=== PATIENT | female | born 1990 | race Caucasian/White ===

== ENCOUNTER 2021-07-27 15:55 | Outpatient (RCR) | payer OTHER, SELFPAY ==
[2021-07-27 17:33] LABS: Hematocrit 34.4 % (37.0-47.0); Hemoglobin 11.6 g/dL (12.0-15.0)
[2021-07-27 17:42] LABS: Glucose 1 Hour PP 50gm Dose 167 mg/dL
[2021-07-27 18:22] LABS: HIV 1/2 Ab P24 Ag Result Negative (Negative)
[2021-07-27 22:03] LABS: Rubella IgG Antibody 36.1 IU/ML
[2021-07-28] MEDS: RHO(D) IMMUNE GLOBULIN 300 MCG/2 ML SYRINGE IM (21:41)
== END 2021-10-25 23:59 | disposition home or self-care (01) ==
LOC: ANHLAB 15:55
PROVIDERS: Visit Provider Obstetrics & Gynecology
DX: Z29.13 Encounter for prophylactic Rho(D) immune globulin (principal); Z11.4 Encounter for screening for human immunodeficiency virus [HIV]; O36.0190 Maternal care for anti-D [Rh] antibodies, unspecified trimester, not applicable or unspecified; Z3A.00 Weeks of gestation of pregnancy not specified
CPT/HCPCS: 36415; 82947; 85014; 85018; 85461; 86703; 86762; 90384; 96372; G0432; J2790

== ENCOUNTER 2021-08-04 07:07 | Outpatient (CLI) | payer OTHER, SELFPAY ==
[2021-08-04 08:09] LABS: Glucose Fasting Gestational 81 mg/dL (>/=95)
[2021-08-04 09:50] LABS: Glucose 1 Hour Gest 161 mg/dL (>/=180)
[2021-08-04 11:06] LABS: Glucose 2 Hour Gest 129 mg/dL (>/= 155)
[2021-08-04 12:01] LABS: Glucose 3 Hour Gest 75 mg/dL (>/=140)
== END 2021-08-04 07:08 | disposition home or self-care (01) ==
PROVIDERS: Visit Provider Obstetrics & Gynecology
DX: R73.09 Other abnormal glucose (principal)
CPT/HCPCS: 36415; 82951; 82952

== ENCOUNTER 2021-09-26 05:32 | Inpatient (IN) | payer OTHER, SELFPAY ==
[2021-09-26] VITALS (53 sets, daily range): BP systolic 111–140; BP diastolic 61–104; PULSE 54–88; RESP 12–16; TEMP 36.1–36.6; O2SAT 99–100; BMI 27.3
[2021-09-26] MEDS: LACTATED RINGERS 1,000 ML 125 ML IV CONT (06:04)
[2021-09-26 06:17] LABS: Basophils Percent Auto 0.4 % (0.2-1.2); Eosinophils Absolute Auto 0.1 K/mm3 (0-0.3); Eosinophils Percent Auto 0.6 % (0-4.4); Hemoglobin 11.9 g/dL (12.0-15.0); Immature Granulocyte Percent A 1.1 % (0-0.5); Lymphocytes Absolute Auto 1.37 K/mm3 (0.9-3.2); Lymphocytes Percent Auto 14.5 % (18.3-44.2); Mean Corpuscular HGB Conc 33.1 g/dl (32-36); Mean Corpuscular Hemoglobin 32.2 pg (26-34); Mean Corpuscular Volume 97.6 fl (80-100); Mean Platelet Volume 12.7 fl (7.4-10.4); Monocytes Absolute Auto 0.5 K/mm3 (0.1-0.6); Monocytes Percent Auto 5.2 % (2.6-8.5); Neutrophils Absolute Auto 7.4 K/mm3 (1.3-6.7); Neutrophils Percent Auto 78.2 % (45.5-73.1); Platelet Count Result 137 k/mm3 (150-375); Red Blood Count 3.69 M/mm3 (4.2-5.4); Red Cell Distribution Width 13.6 % (11.5-14.5); White Blood Count 9.4 K/mm3 (4.5-10.0)
--- NOTE | 2021-09-26 06:45 | WPDANESEPP ---
Anes - Eval Pre Procedure Procedure: Operation Date: 09/29/21 09:00 Proposed Procedures p Repeat Section with Bilateral Tubal Sterilization - Matt Anders MD Date/Time: 09/26/21 06:45 Pre Op Diagnosis: contractions Patient Data Age: 31 Gender: F Height: 1.8 m Weight: 89 kg Last Vital Signs Pulse 78 09/26/21 06:31 BP 125/86 09/26/21 06:31 Allergies Allergy/AdvReac Type Severity Reaction Status Date / Time Penicillins Allergy Intermediate Rash Verified 08/16/18 21:48 Home Medications Medication Instructions Recorded Confirmed Type PNV cmb#95-ferrous fumarate-FA 1 tablet PO DAILY 09/12/21 09/12/21 History [] Laboratory Tests 09/26/21 09/26/21 06:00 06:00 WBC 9.4 K/mm3 K/mm3 (4.5-10.0) RBC 3.69 M/mm3 L M/mm3 (4.2-5.4) Hgb 11.9 g/dL L g/dL (12.0-15.0) Hct 36.0 % L % (37.0-47.0) MCV 97.6 fl fl (80-100) MCH 32.2 pg pg (26-34) MCHC 33.1 g/dl g/dl (32-36) RDW 13.6 % % (11.5-14.5) Plt Count 137 k/mm3 L k/mm3 (150-375) MPV 12.7 fl H fl (7.4-10.4) Immature Gran % (Auto) 1.1 % H % (0-0.5) Neut % (Auto) 78.2 % H % (45.5-73.1) Lymph % (Auto) 14.5 % L % (18.3-44.2) [place] % (Auto) 5.2 % % (2.6-8.5) Eos % (Auto) 0.6 % % (0-4.4) Baso % (Auto) 0.4 % % (0.2-1.2) Lymph # (Auto) 1.37 K/mm3 K/mm3 (0.9-3.2) [place] # (Auto) 0.5 K/mm3 K/mm3 (0.1-0.6) Eos # (Auto) 0.1 K/mm3 K/mm3 (0-0.3) Baso # (Auto) 0.0 K/mm3 K/mm3 (0.0-0.1) Abs Immat Gran (auto) 0.10 K/mm3 H K/mm3 (0.00-0.031) Absolute Neuts (auto) 7.4 K/mm3 H K/mm3 (1.3-6.7) Absolute Nucleated RBC 0.0 K/mm3 K/mm3 (0.0-0.012) Nucleated RBC % 0.0 % % (0.0-0.2) RPR Pending Patient hx anesthesia problems: none Family hx anesthesia problems: none Results Review: All pre-operative results and documents have been reviewed as part of the pre-operative evaluation. [facility] Family History Family History (Updated 09/12/21 @ 13:41 by Tommie Bansal RN) Other No pertinent family history Social History Social History Smoking status: Never smoker Second hand tobacco smoke exposure: No Substance use: never Spiritual care concerns: No Exam Day of Procedure 09/26/21 06:45
--- NOTE | 2021-09-26 07:00 | PM.IMHP ---
H&P: HPI History of Present Illness Date/Time: 09/26/21 07:00 1-year-old 3 para 2001 presents at 39 weeks and early labor. She is not ruptured. heart rate is good and reactive. She has no significant abnormalities in her care and records are on the chart. Chief Complaint: Review of Systems Review of Systems: All systems reviewed & are unremarkable except as noted in HPI and below PMFSH Family History Family History Other No pertinent family history Social History Social History Smoking status: Never smoker Second hand tobacco smoke exposure: No Substance use: never Spiritual care concerns: No Meds Home Medications and Allergies Home Medications Medication Instructions Recorded Confirmed Type PNV cmb#95-ferrous fumarate-FA 1 tablet PO DAILY 09/12/21 09/12/21 History [] Allergies Allergy/AdvReac Type Severity Reaction Status Date / Time Penicillins Allergy Intermediate Rash Verified 08/16/18 21:48 Vital Signs Vital Signs - 24 hr 09/26/21 05:11 09/26/21 05:16 09/26/21 05:31 Pulse Rate 82 79 79 Blood Pressure 134/93 H 128/88 125/88 09/26/21 05:46 09/26/21 06:01 09/26/21 06:16 Pulse Rate 83 88 83 Blood Pressure 126/87 122/89 125/88 09/26/21 06:31 Pulse Rate 78 Blood Pressure 125/86 Exam Const: General: cooperative and healthy appearing Resp: Effort & Inspection: normal respiratory effort Auscultation: clear to auscultation bilaterally Cardio: Rate: regular rate Rhythm: regular rhythm GI: Inspection: normal to inspection Auscultation: normal bowel sounds : Bimanual exam- vagina & uterus: enlarged ( Fundal height 39cm heart tones 140 breech presentation) H&P: Results Labs Labs: Short CBC 09/26/21 Range/Units 06:00 WBC 9.4 (4.5-10.0) K/mm3 Hgb 11.9 L (12.0-15.0) g/dL Hct 36.0 L (37.0-47.0) % Plt Count 137 L (150-375) k/mm3 Assessment and Plan Assessment and plan (1) 39 weeks gestation of : Code(s): Z3A.39 - 39 weeks gestation of Status: Acute (2) Previous delivery affecting : Code(s): O34.219 - Maternal care for unspecified type scar from previous delivery Status: Acute (3) Breech presentation: Code(s): O32.1XX0 - Maternal care for breech presentation, not applicable or unspecified Status: Acute Additional Plan proceed with repeat delivery.
--- NOTE | 2021-09-26 07:03 | WPDHPUPDATE1 ---
History and Physical Update Update Date/Time: 09/26/21 07:03 History and Physical has been reviewed, including an updated exam of the patient. There are NO changes in the patient's condition. Risks, benefits, and alternatives have been discussed and questions answered. Patient agrees to proceed with procedure.
[2021-09-26] MEDS: ceFAZolin 2 GM/D5W 50 ML 2 GM/50 ML BAG IVPB (07:09)
--- NOTE | 2021-09-26 07:21 | WPDANESEFPP ---
Anes - Eval Final PreProcedure Day of Procedure 09/26/21 07:21 Patient weight: overweight Heart: regular rate and rhythm Lungs: clear to auscultation and normal air movement Airway: Mallampati scale class II Neurological: alert and oriented Last oral intake: >/= 8 hours ASA classification: II Emergent: no Anesthetic plan: proceed Anesthesia type and monitoring: regional spinal and standard monitoring Results Review: All pre-operative results and documents have been reviewed as part of the pre-operative evaluation. Informed Consent: The patient's anesthetic plan and its attendant risks and benefits were discussed with the patient/family/POA. Questions were solicited and answers provided to the satisfaction of the patient/family/POA.
[2021-09-26] MEDS: LACTATED RINGERS 1,000 ML 999 ML IV CONT (07:30)
--- NOTE | 2021-09-26 08:24 | PM.OBPRVD ---
OB - Delivery Note Procedure Procedure: Procedures Operation Date: 09/29/21 09:00 <No data on this case meets the specified criteria> events: Previous Route of delivery: Specimen: No Quantitative Blood Loss (ml): 745 Anesthesia type: Spinal Disposition: floor Narrative: Patient prepped and draped in usual manner for this procedure. Pfannenstiel incision was made and carried down to the fascia. Which was then extended bilaterally the length of the skin incision. Superiorly and inferiorly dissected away from the rectus muscles. Peritoneum was readily entered bladder flap developed. There was a very thin lower uterine segment and deflecting the bladder off of the uterus was difficult due to poor anatomic planes. Clear fluid was noted and vertex was delivered without difficulty rest of baby was delivered as well cord was clamped and cut and the placenta was removed manually. Membranes and clots were removed from the uterine cavity at this point. As the uterus contracted lower segment developed partially and was able to delineate and approximate the lower segment using Monocryl and a running manner with running locking manner with good approximation and hemostasis noted. Uterus was then turned to the abdomen incision was inspected and was hemostatic. Due to the scarring and potential for oozing [place] arm was placed in this area empirically. Gutters were cleared of clots and membranes and fluids and all subfascial tissue was noted be hemostatic. Fascia was approximated using 0 Vicryl from the left angle to the midline and the right angle to the midline with good approximation hemostasis again noted. Subcutaneous tissue was approximated using 0 plain suture. 4-0 Monocryl was used on subcuticular layer to approximate the skin edges. Patient was then sent to recovery room in stable condition. [place] Baby Weeks of gestation at delivery: 39 gender: Male Weight (pounds): 8 Weight (ounces): 5 score one minute: 8 score five minutes: 9
[2021-09-26] MEDS: OXYTOCIN 30 UNITS/NS 500 ML 30 UNITS/500 ML BAG 125 UNITS IV CONT (10:46)
--- NOTE | 2021-09-26 11:10 | PC.NURSE ---
Patient transferred to post room #284 via stretcher. Support person present. Oriented to unit, room, information board, rooming in, admission packet and security measures. Patient verbalizes understanding.
[2021-09-26] MEDS: KETOROLAC 30 MG/ML VIAL (*BKC) IV PUSH (14:23)
[2021-09-26] MEDS: DOCUSATE SODIUM 100 MG CAPSULE PO (14:23)
[2021-09-26] MEDS: DEXTROSE 5%/0.45% SOD CHL 1,000 ML 125 ML IV CONT (15:19)
[2021-09-26 15:38] LABS: Rapid Plasma Reagin Non-Reactive (NonReactive)
[2021-09-26] MEDS: HYDROcodone/acetaminophen (*CRX) 5-325 MG TABLET 1 TAB PO (23:27)
[2021-09-26] MEDS: IBUPROFEN 600 MG TABLET PO (23:28)
[2021-09-27 04:17] LABS: Basophils Percent Auto 0.3 % (0.2-1.2); Eosinophils Absolute Auto 0.1 K/mm3 (0-0.3); Eosinophils Percent Auto 0.7 % (0-4.4); Hematocrit 31.7 % (37.0-47.0); Hemoglobin 10.5 g/dL (12.0-15.0); Immature Granulocyte Absolute 0.09 K/mm3 (0.00-0.031); Immature Granulocyte Percent A 0.8 % (0-0.5); Lymphocytes Absolute Auto 1.09 K/mm3 (0.9-3.2); Lymphocytes Percent Auto 9.8 % (18.3-44.2); Mean Corpuscular HGB Conc 33.1 g/dl (32-36); Mean Corpuscular Volume 96.6 fl (80-100); Mean Platelet Volume 12.8 fl (7.4-10.4); Monocytes Absolute Auto 0.5 K/mm3 (0.1-0.6); Monocytes Percent Auto 4.6 % (2.6-8.5); Neutrophils Absolute Auto 9.3 K/mm3 (1.3-6.7); Neutrophils Percent Auto 83.8 % (45.5-73.1); Platelet Count Result 131 k/mm3 (150-375); Red Blood Count 3.28 M/mm3 (4.2-5.4); Red Cell Distribution Width 13.7 % (11.5-14.5); White Blood Count 11.1 K/mm3 (4.5-10.0)
[2021-09-27 04:20] VITALS: BP 112/76; PULSE 89; RESP 16; TEMP 36.4
[2021-09-27] MEDS: HYDROcodone/acetaminophen (*CRX) 5-325 MG TABLET 1 TAB PO ×6 (04:20→19:18)
[2021-09-27] MEDS: IBUPROFEN 600 MG TABLET PO ×2 (08:18→18:56)
[2021-09-27] MEDS: DOCUSATE SODIUM 100 MG CAPSULE PO ×2 (08:18→16:05)
[2021-09-27] MEDS: MULTIVIT/MIN/PREN/FOL AC/IRON TABLET 1 TAB PO (08:18)
--- NOTE | 2021-09-27 09:20 | WPDANLDNPN2 ---
Anes-Prog Note L&D-Neuraxial Date/Time: 09/27/21 09:20 Neuraxial medications: intrathecal PF morphine Opiod-related complaints: none Patient feedback: Patient satisfied with post-operative pain management.
--- NOTE | 2021-09-27 09:20 | WPDANLDPN2 ---
Anes-Prog Note L&D Date/Time: 09/27/21 09:20 Comfortable throughout: section Neuraxial method: spinal Epidural/Spinal procedure site: clean & non-tender Neuro status: Neuro function grossly intact. Cardiovascular status: normal Respiratory status: normal Airway patency: baseline Mental status: baseline Post-Op hydration status: normal Vital Signs: Last Vital Signs Temp 36.4 C 09/27/21 04:20 Pulse 89 09/27/21 04:20 Resp 16 09/27/21 04:20 BP 112/76 09/27/21 04:20 Pulse Ox 99 09/26/21 19:10 Pain score (VAS): 0 I/O: Intake & Output 09/26/21 09/27/21 09/27/21 23:59 07:59 15:59 Intake Total 900 700 Output Total 3650 2800 Balance -2750 -2100 Patient feedback: Patient satisfied with anesthetic care.
[2021-09-27 09:31] VITALS: BP 121/82; PULSE 91; RESP 18; TEMP 36.4; O2SAT 98
--- NOTE | 2021-09-27 10:18 | P.DS_ITS ---
DS: Admitting Diagnosis Discharge Date 09/28/2021 Admitting Diagnosis DS: Discharge Diagnosis Discharge Diagnosis (1) 39 weeks gestation of : Code(s): Z3A.39 - 39 weeks gestation of Status: Acute OB - DS: Summary OB Procedures : None OB Procedures Intrapartum: OB Procedures: : None Peripartum Data Procedures: Procedures Operation Date: 09/26/21 07:30 Actual Procedure Side Surgeon p Section Matt Anders MD Operation Date: 09/29/21 09:00 <No data on this case meets the specified criteria> Time Spent with Patient Time attestation: Total time spent providing and/or coordinating discharge services: DS: Data Data Completed and Pending Labs on day of discharge: Labs from last 24 hours 09/27/21 09/27/21 09/26/21 04:08 04:08 06:00 WBC 11.1 H RBC 3.28 L Hgb 10.5 L Hct 31.7 L MCV 96.6 MCH 32.0 MCHC 33.1 RDW 13.7 Plt Count 131 L MPV 12.8 H Immature Gran % (Auto) 0.8 H Neut % (Auto) 83.8 H Lymph % (Auto) 9.8 L [place] % (Auto) 4.6 Eos % (Auto) 0.7 Baso % (Auto) 0.3 Lymph # (Auto) 1.09 [place] # (Auto) 0.5 Eos # (Auto) 0.1 Baso # (Auto) 0.0 Abs Immat Gran (auto) 0.09 H Absolute Neuts (auto) 9.3 H Absolute Nucleated RBC 0.0 Nucleated RBC % 0.0 RPR Non-reactive Blood Type A Negative Antibody Screen TNP Antibody Identification TNP Antigen Identification TNP MIKE, IgG Interpret Not Performed MIKE, Poly Interpret TNP MIKE, Complement Interp Not Performed Screen Negative Baby's Blood Type B pos Baby's MIKE Negative Doses of RhIg Required 1 Discharge Plan Discharge Discharging Clinician: Matt Anders Patient Disposition: Home, Self-Care Activity: as tolerated Diet: as tolerated Wound Care Instructions: incision open to air Patient Instructions: Antibiotic Form Stand Alone Forms: General Discharge Information Follow-up/Referrals: Matt Anders MD [Physician] - 3 Weeks Discharge Medications: New hydrocodone-acetaminophen 5-325 mg Tablet 1 tablet PO Q6H Qty: 30 RF: 0 ibuprofen 600 mg Tablet 600 mg PO Q6H PRN (Reason: Cramping) Qty: 30 RF: 0 Continued PNV cmb#95-ferrous fumarate-FA [] 28 mg iron- 800 mcg Tablet 1 tablet PO DAILY RF: 0 Date of admission: 09/26/21 05:32 Primary Care Provider: PHYSICIAN,RECYCLING SORTER Admitting Provider: Matt Anders Attending physician on admission: Matt Anders Condition: Stable
[2021-09-27] MEDS: RHO(D) IMMUNE GLOBULIN 300 MCG/2 ML SYRINGE IM (12:25)
[2021-09-27 19:07] VITALS: BP 129/80; PULSE 90; RESP 18; TEMP 37.1; O2SAT 100
--- NOTE | 2021-09-27 20:00 | PC.NURSE ---
Patient viewed the discharge video Mother & Baby Care, The First Two Weeks . Patient was given the opportunity and encouraged to ask questions. Patient verbalized understanding of information shared and has been given the mother/baby guide for home reference.
[2021-09-28] MEDS: HYDROcodone/acetaminophen (*CRX) 5-325 MG TABLET 1 TAB PO ×3 (00:45→08:40)
[2021-09-28] MEDS: IBUPROFEN 600 MG TABLET PO (05:26)
--- NOTE | 2021-09-28 08:30 | PC.NURSE ---
PT introductions made and plan of care discussed per post op c section, pain management, breast feeding, daily care activities and pending discharge to home. PT verbalized understanding of such care. She and her spouse were both recipients of such instructions and no barriers to learning identified at this time. PT received instructions and care via one to one instructions, mom baby care guide and demonstrations throughout the shift.
[2021-09-28] MEDS: DOCUSATE SODIUM 100 MG CAPSULE PO (08:40)
[2021-09-28] MEDS: SIMETHICONE 80 MG TAB.CHEW PO (08:40)
[2021-09-28] MEDS: MULTIVIT/MIN/PREN/FOL AC/IRON TABLET 1 TAB PO (08:41)
[2021-09-28 08:42] VITALS: BP 151/84; PULSE 85; RESP 18; O2SAT 100
[2021-09-28] MEDS: LANOLIN (LANSINOH) 7.5 GM CREAM 1 APPLIC TOPICAL (08:52)
--- NOTE | 2021-09-28 10:30 | PC.NURSE ---
PT received discharge instructions per protocol and verbalized understanding of such care.
--- NOTE | 2021-09-28 10:54 | PC.NURSE ---
PT discharged to home ambulatory accompanied by both spouse and infant and taken to waiting car. Follow up appts confirmed
[2021-09-30 10:37] VITALS: BP 144/88; PULSE 91; RESP 20; TEMP 36.9; O2SAT 100
--- NOTE | 2021-10-02 11:28 | PM.OBDSVD ---
DS: Admitting Diagnosis Discharge Date 09/28/21 Admitting Diagnosis OB - DS: Summary OB Procedures : None OB Procedures Intrapartum: OB Procedures: : None Peripartum Data Procedures: Procedures Operation Date: 09/26/21 07:30 Actual Procedure Side Surgeon p Section Matt Anders MD Operation Date: 09/29/21 09:00 <No data on this case meets the specified criteria> Time Spent with Patient Time attestation: Total time spent providing and/or coordinating discharge services: Discharge Plan Discharge Consulting providers: Thai Carlos Discharging Clinician: Matt Anders Patient Disposition: Home, Self-Care Activity: as tolerated Diet: as tolerated Wound Care Instructions: incision open to air Discharge Instructions: Education: Mom and Baby Guide Given to: Mother Follow-Up: Call your delivering provider's office for an appointment to be seen in: 3 weeks Mom and baby [facility] the follow-up appointment. Appointment Date/Time: September 30, 2021 at 10:00 am What to expect at your follow-up visit: Blood Pressure Check Call [phone] if you are unable to keep your appointment time. BREAST CARE: * Wear a snug supportive bra. * For engorgement discomfort: Breast Feeding: * Apply warm moist washcloths * Express milk as needed to relieve engorgement * Wear loose clothing Bottle Feeding: * May apply ice packs * For sore nipples: * Identify correct latch-on * Apply warm moist washcloths before and after nursing * Air dry nipples after nursing * May apply Lansinoh cream to nipples ABDOMINAL INCISION: (if applicable) * Allow incision to air dry * Do NOT use lotions for powders on your incision * When showering, allow soap and water to run over the incision, but do not wash incision PERINEAL CARE: * Until bleeding stops, use your vivien bottle after urinating * Change your pad frequently throughout the day * No tub baths until seen by your physician - You may shower ACTIVITY: * Rest as much as possible. * Do not exercise or lift anything heavier than your baby (such as laundry or other children.) * Avoid stairs or driving as much as possible. * Do not put anything into the vagina. No douching, tampons, or sexual activity until seen by physician. NOTIFY PHYSICIAN IF YOU HAVE ANY QUESTIONS OR IF ANY OF THE FOLLOWING SYMPTOMS OCCUR: * If you incision becomes red, swollen, or more painful than what you have experienced in the hospital. * If your vaginal bleeding becomes foul smelling. * If your vaginal bleeding becomes more heavy than a period or if your bleeding changes from pink to bright red. However, you may pass an occasional walnut-sized clot once or twice for the first week . * If you experience a sharp, shooting pain in you calves. * If you discover a hard, reddened area on your breast or if you experience flu-like symptoms. * If you have a fever of 100.4 or greater DIET: * Eat regular, well-balanced meals. * Drink plenty of fluids daily. If , drink to thirst. Patient Instructions: Antibiotic Form Stand Alone Forms: General Discharge Information Follow-up/Referrals: Matt Anders MD [Physician] - 3 Weeks Discharge Medications: New hydrocodone-acetaminophen 5-325 mg Tablet 1 tablet PO Q6H Qty: 30 RF: 0 ibuprofen 600 mg Tablet 600 mg PO Q6H PRN (Reason: Cramping) Qty: 30 RF: 0 Continued PNV cmb#95-ferrous fumarate-FA [] 28 mg iron- 800 mcg Tablet 1 tablet PO DAILY RF: 0 Date of admission: 09/26/21 05:32 Primary Care Provider: PHYSICIAN,RETAIL TEAM MEMBER Admitting Provider: Matt Anders Attending physician on admission: Matt Anders Condition: Stable
--- NOTE | 2021-10-28 19:04 | PM.OBDSVD ---
DS: Admitting Diagnosis Discharge Date 09/28/21 Admitting Diagnosis /delivery 09/26/21 OB - DS: Summary OB Procedures : None OB Procedures Intrapartum: OB Procedures: : None Peripartum Data Procedures: Procedures Operation Date: 09/26/21 07:30 Actual Procedure Side Surgeon p Section Matt Anders MD Time Spent with Patient Time attestation: Total time spent providing and/or coordinating discharge services: Discharge Plan Discharge Consulting providers: Thai Carlos Discharging Clinician: Matt Anders Patient Disposition: Home, Self-Care Activity: as tolerated Diet: as tolerated Wound Care Instructions: incision open to air Discharge Instructions: Education: Mom and Baby Guide Given to: Mother Follow-Up: Call your delivering provider's office for an appointment to be seen in: 3 weeks Mom and baby [facility] the follow-up appointment. Appointment Date/Time: September 30, 2021 at 10:00 am What to expect at your follow-up visit: Blood Pressure Check Call [phone] if you are unable to keep your appointment time. BREAST CARE: * Wear a snug supportive bra. * For engorgement discomfort: Breast Feeding: * Apply warm moist washcloths * Express milk as needed to relieve engorgement * Wear loose clothing Bottle Feeding: * May apply ice packs * For sore nipples: * Identify correct latch-on * Apply warm moist washcloths before and after nursing * Air dry nipples after nursing * May apply Lansinoh cream to nipples ABDOMINAL INCISION: (if applicable) * Allow incision to air dry * Do NOT use lotions for powders on your incision * When showering, allow soap and water to run over the incision, but do not wash incision PERINEAL CARE: * Until bleeding stops, use your vivien bottle after urinating * Change your pad frequently throughout the day * No tub baths until seen by your physician - You may shower ACTIVITY: * Rest as much as possible. * Do not exercise or lift anything heavier than your baby (such as laundry or other children.) * Avoid stairs or driving as much as possible. * Do not put anything into the vagina. No douching, tampons, or sexual activity until seen by physician. NOTIFY PHYSICIAN IF YOU HAVE ANY QUESTIONS OR IF ANY OF THE FOLLOWING SYMPTOMS OCCUR: * If you incision becomes red, swollen, or more painful than what you have experienced in the hospital. * If your vaginal bleeding becomes foul smelling. * If your vaginal bleeding becomes more heavy than a period or if your bleeding changes from pink to bright red. However, you may pass an occasional walnut-sized clot once or twice for the first week . * If you experience a sharp, shooting pain in you calves. * If you discover a hard, reddened area on your breast or if you experience flu-like symptoms. * If you have a fever of 100.4 or greater DIET: * Eat regular, well-balanced meals. * Drink plenty of fluids daily. If , drink to thirst. Patient Instructions: Antibiotic Form Stand Alone Forms: General Discharge Information Follow-up/Referrals: Matt Anders MD [Physician] - 3 Weeks Discharge Medications: New hydrocodone-acetaminophen 5-325 mg Tablet 1 tablet PO Q6H Qty: 30 RF: 0 ibuprofen 600 mg Tablet 600 mg PO Q6H PRN (Reason: Cramping) Qty: 30 RF: 0 Continued PNV cmb#95-ferrous fumarate-FA [] 28 mg iron- 800 mcg Tablet 1 tablet PO DAILY RF: 0 Date of admission: 09/26/21 05:32 Primary Care Provider: PHYSICIAN,AUTOMATIC BUFFER Admitting Provider: Matt Anders Attending physician on admission: Matt Anders Condition: Stable
== END 2021-09-28 10:54 | disposition home or self-care (01) | DRG 788 ==
LOC: ANHLDR 05:58 → ANHOB2 11:23
PROVIDERS: Admitting Provider Obstetrics & Gynecology; Visit Provider Obstetrics & Gynecology
PROC: 10D00Z1 Extraction of Products of Conception, Low, Open Approach (ICD-10-PCS; CPT 59514; principal; 2021-09-26 07:30)
DX: O34.219 Maternal care for unspecified type scar from previous cesarean delivery (principal); Z3A.39 39 weeks gestation of pregnancy; Z37.0 Single live birth
CPT/HCPCS: 36415; 85025; 85461; 86592; 86850; 86880; 86900; 86901; 86902; 90384; A9270; J0131; J0690; J1885; J2274; J2590; J2790; J7120